=== PATIENT | male | born 1960 | race African-American/Black ===

== ENCOUNTER 2019-12-03 13:59 | Inpatient (IN) | payer MEDICAID, OTHER ==
[~2019-12-03] VITALS: Ht 193 cm; Wt 136.1 kg
[2019-12-03 15:03] LABS: CHLORIDE 106 mEq/L (98-107); HEMATOCRIT. 45.6 % (42.0-52.0); HEMOGLOBIN. 15.3 g/dL (14.0-18.0); MEAN CORPUSCULAR HEMOGLOBIN 31.3 pg (28.0-32.0); MEAN CORPUSCULAR VOLUME 93.2 fL (80.0-94.0); PLATELET 158 x1000/uL (130-400); RED CELL DISTRIBUTION WIDTH 13.9 % (11.6-14.6)
[2019-12-03 15:07] LABS: ETHANOL BLOOD < 10 mg/dL
[2019-12-03] MEDS ORDERED: ONDANSETRON 4MG ODT PO ONE (15:15)
[2019-12-03] MEDS ORDERED: HYDROCODONE/ACETAMINOPHEN 5/325MG TABLET PO ONE (15:15)
[2019-12-03 15:40] LABS: PLATELET ESTIMATE NORMAL
[2019-12-03 18:22] LABS: *AMPHETAMINES SCREEN URINE NEGATIVE (NEGATIVE); *BARBITURATES SCREEN URINE NEGATIVE (NEGATIVE); *BENZODIAZEPINES SCREEN URINE NEGATIVE (NEGATIVE); *COCAINE SCREEN URINE PRESUMTIVE POSITIVE (NEGATIVE); METHADONE URINE SCREEN NEGATIVE (NEGATIVE)
[2019-12-03 18:23] LABS: CANNABINOID URINE SCREEN PRESUMTIVE POSITIVE (NEGATIVE); OPIATES URINE SCREEN PRESUMTIVE POSITIVE (NEGATIVE); PHENCYCLIDINE URINE SCREEN NEGATIVE (NEGATIVE)
[2019-12-03] MEDS ORDERED: ONDANSETRON HCL 4MG/2ML INJ IV PRN (18:45)
[2019-12-03] MEDS ORDERED: ACETAMINOPHEN 325MG TABLET PO PRN (18:45)
[2019-12-03] MEDS ORDERED: IPRATROPIUM/ALBUTEROL 0.5-3(2.5)MG/3ML NEB HHN PRN (18:45)
[2019-12-03] MEDS ORDERED: CLONIDINE 0.1MG TABLET PO PRN (18:45)
[2019-12-03 19:16] LABS: PHOSPHORUS 2.8 mg/dL (2.5-4.9)
[2019-12-03 23:13] LABS: CREATINE KINASE MB FRACTION 1.4 ng/mL (0.5-3.6)
[2019-12-04] MEDS: HYDROCODONE/ACETAMINOPHEN 5/325MG TABLET PO PRN ×4 (01:16→20:29)
[2019-12-04 05:23] LABS: HEMATOCRIT. 42.5 % (42.0-52.0); HEMOGLOBIN. 14.5 g/dL (14.0-18.0); MEAN CORPUSCULAR HEMOGLOBIN 31.3 pg (28.0-32.0); MEAN CORPUSCULAR VOLUME 91.7 fL (80.0-94.0); PLATELET 148 x1000/uL (130-400); RED BLOOD CELL COUNT 4.63 mill/uL (4.7-6.1); RED CELL DISTRIBUTION WIDTH 13.9 % (11.6-14.6)
[2019-12-04 05:30] LABS: CHLORIDE 107 mEq/L (98-107)
[2019-12-04 05:38] LABS: HDL CHOLESTEROL 28 mg/dL (40-59)
[2019-12-04 05:39] LABS: LDL CHOLESTEROL 55 mg/dL (5-100)
[2019-12-04 05:40] LABS: CREATINE KINASE 197 IU/L (39-308)
[2019-12-04 05:43] LABS: CREATINE KINASE MB FRACTION 1.5 ng/mL (0.5-3.6)
[2019-12-04 06:48] LABS: PLATELET ESTIMATE NORMAL
[2019-12-04 09:30] VITALS: BP 143/103
[2019-12-04 10:46] VITALS: BP 143/108
[2019-12-04] MEDS ORDERED: ALBU90AE IH (11:05)
[2019-12-04 12:00] VITALS: BP 151/88
[2019-12-04 16:00] VITALS: BP 148/72
[2019-12-04 20:00] VITALS: BP 120/66
[2019-12-04] MEDS ORDERED: DEXTROSE 50% WATER 50ML SYRINGE IV PRN (20:00)
[2019-12-04] MEDS: BLOOD SUGAR DIAGNOSTIC STRIP TEST SCH (20:28)
[2019-12-04] MEDS: INSULIN LISPRO 100 UNITS/ML SUBCUT SCH (20:28)
[2019-12-04] MEDS: SODIUM CHLORIDE 0.9% 1,000 ML IV SCH (20:28)
[2019-12-04] MEDS: ENOXAPARIN 40MG/0.4ML SYR SUBCUT SCH ×2 (20:29→21:00)
[2019-12-05] VITALS: BP 143/83
[2019-12-05] MEDS: HYDROCODONE/ACETAMINOPHEN 5/325MG TABLET PO PRN ×4 (00:21→23:40)
[2019-12-05 04:00] VITALS: BP 108/81
[2019-12-05] MEDS: BLOOD SUGAR DIAGNOSTIC STRIP TEST SCH ×4 (06:09→20:49)
[2019-12-05] MEDS: INSULIN LISPRO 100 UNITS/ML SUBCUT SCH ×4 (06:09→20:49)
[2019-12-05 08:00] VITALS: BP 122/80
[2019-12-05] MEDS: SODIUM CHLORIDE 0.9% 1,000 ML IV SCH ×2 (09:30→22:00)
[2019-12-05] MEDS: ENOXAPARIN 40MG/0.4ML SYR SUBCUT SCH ×2 (09:46→20:49)
[2019-12-05 12:00] VITALS: BP 130/78
[2019-12-05 16:00] VITALS: BP 134/92
[2019-12-05 20:00] VITALS: BP 133/81
[2019-12-06] VITALS: BP 122/85
[2019-12-06 04:00] VITALS: BP 133/81
[2019-12-06] MEDS: HYDROCODONE/ACETAMINOPHEN 5/325MG TABLET PO PRN ×3 (05:02→16:33)
[2019-12-06] MEDS: INSULIN LISPRO 100 UNITS/ML SUBCUT SCH ×3 (07:15→16:34)
[2019-12-06] MEDS: BLOOD SUGAR DIAGNOSTIC STRIP TEST SCH ×3 (07:30→16:34)
[2019-12-06 08:00] VITALS: BP 143/89
[2019-12-06] MEDS: ENOXAPARIN 40MG/0.4ML SYR SUBCUT SCH (08:31)
[2019-12-06] MEDS: SODIUM CHLORIDE 0.9% 1,000 ML IV SCH (10:30)
[2019-12-06 12:00] VITALS: BP 125/89
[2019-12-06 16:00] VITALS: BP 143/92
[2019-12-06 17:24] VITALS: BP 140/89
== END 2019-12-06 18:47 | disposition home or self-care (01) | DRG 48 ==
LOC: ER 13:59 → 5WST 17:50 → EDBEDREQ 17:52 → EDBEDREQTM 17:52 → ENRESERV 12-04 08:18 → CANRESERV 12-04 08:18 → ENRESERV 12-04 08:53
PROVIDERS: ADMIT Internal Medicine; ATTEND Internal Medicine
DX: G90.8 Other disorders of autonomic nervous system (principal); E44.1 Mild protein-calorie malnutrition; I10 Essential (primary) hypertension; J44.9 Chronic obstructive pulmonary disease, unspecified; M19.90 Unspecified osteoarthritis, unspecified site; M25.552 Pain in left hip; S49.92XA Unspecified injury of left shoulder and upper arm, initial encounter; J45.909 Unspecified asthma, uncomplicated; T50.905A Adverse effect of unspecified drugs, medicaments and biological substances, initial encounter; R73.9 Hyperglycemia, unspecified; Z71.51 Drug abuse counseling and surveillance of drug abuser; Y92.89 Other specified places as the place of occurrence of the external cause; W18.39XA Other fall on same level, initial encounter; Y93.89 Activity, other specified; Y99.8 Other external cause status
CPT/HCPCS: 36415; 71045; 73030; 73110; 73130; 80053; 80061; 80305; 80320; 82550; 82553; 82962; 83036; 83735; 83880; 84100; 84443; 84484; 85025; 93005; 93306; 93880; 93970; A4565; J1650; Q0162; G0480